=== PATIENT | male | born 1970 | race Caucasian/White ===

== ENCOUNTER 2019-01-14 15:33 | Emergency (ER) | payer BC, SELFPAY ==
[2019-01-14 15:34] VITALS: BP 125/80; PULSE 57; RESP 16; TEMP 36.6; O2SAT 100; BMI 24.3
--- NOTE | 2019-01-14 16:04 | ED.VIS.GEN ---
History of Present Illness Chief Complaint: Flank Pain Detail of Chief Complaint: Left flank pain Informant: Patient Onset: Days - 2 days ago Context: Gradual Onset Timing: Continuous Quality: Aching and throbbing Location: Left flank and left lower ribs Current Severity: Mild Maximum Severity: Moderate Worsened by: Movement, deep breath, palpation Narrative: Patient reports left lateral upper abdominal wall and left lower rib pain that started on Tuesday, 2 days ago. Patient states he was at work at the time. He does not remember a specific injury but does lift quite a bit. Pain is worse with movement. He has not taken anything for pain. He denies urinary symptoms. He has no shortness of breath or cough. He has no nausea or vomiting. Past Medical History - Allergies and Home Meds Allergies/Adverse Reactions: Allergies Penicillins [PCN] Allergy (Verified 01/14/19 15:34) Hives Primary Care Physician: Care Physician,No Primary [Primary Care Provider] - Prior records reviewed: Yes Past Medical History: - - Reviewed Lives: Spouse/ Significant Other Review of Systems General: Denies: Chills, Fever Eyes: Denies: Visual changes - bilaterally ENT: Denies: Bilateral ear pain Cardiovascular: Denies: Chest pain Respiratory: Denies: Dyspnea, Cough Gastrointestinal: Reports: Abdominal pain - Left lateral abdominal wall. Denies: Nausea, Vomiting Genitourinary: Denies: Dysuria, Hematuria Musculoskeletal: Reports: Back pain - Left flank area Skin: Denies: Rash Neurological: Denies: Weakness, Parasthesia Hematologic: Denies: Easy bruising, Easy bleeding Allergy: Denies: Uticaria Physical Exam Vital Signs/Narrative: Vital Signs Temp Pulse Resp BP Pulse Ox 01/14/19 15:34 97.8 F 57 L 16 125/80 H 100 General: Well nourished, Well developed Eyes: EOMI ENT: Moist mucous membranes Cardiovascular: Regular rate, Regular rhythm Respiratory: No distress, CTA bilaterally, Chest tenderness - Left lower lateral rib tenderness. No crepitus. Abdomen: Soft, Normal bowel sounds, Tender - Tenderness along the left upper lateral abdominal wall.. Negative for: Guarding, Rebound tenderness Back: - - Tenderness along the left lumbar paraspinal muscles. Extremities: Nontender Skin: Normal color, No rash Neurological: Alert, Oriented x3 Diagnostic/Tx/Re-eval Impressions Chest X-Ray 01/14/19 16:15 IMPRESSION: Normal x-ray examination of the chest. Electronically Signed: Haja Smyth DO at 16:56 EDT Tel , Service support , 01/14/19 16:15 Chest PA and Lateral [RAD] Stat - Medical Decision Making Patient was given naproxen along with 1 tab of p.o. [place]. On repeat examination patient reports improvement in his symptoms. I believe his pain is all in the chest abdominal wall. Patient be treated with naproxen at home. He is given work restrictions for 2 days. ED Disposition - Plan for ED Patient: Disposition: Home or Assisted Living Instructions: Chest Wall Strain Prescriptions: Naproxen [Naprosyn] 500 mg PO BID PRN #20 tablet Referrals: Kevin Alonso MD [STAFF PHYSICIAN] - As Needed
[2019-01-14] MEDS: HYDROcodone Bitartrate/Apap 5/325 Tablet PO (16:13)
[2019-01-14] MEDS: Naproxen 500 MG Tablet PO (16:13)
--- NOTE | 2019-01-14 16:15 | RAD_ITS ---
STUDY: X-RAY CHEST REASON FOR EXAM: Male, 48 years old. Chest pain TECHNIQUE: PA and lateral views of the chest. COMPARISON: None. FINDINGS: The lungs are clear and expanded. There is no demonstrated pleural abnormality. Normal size heart. Normal mediastinum and eileen. Normal visualized pulmonary arteries. Normal visualized aortic arch and descending thoracic aorta. Normal visualized thoracic spine. Normal visualized ribs, clavicles, and shoulders. There is no demonstrated abnormality of the visualized soft tissue structures of the upper abdomen. RAD/Chest PA and Lateral IMPRESSION: Normal x-ray examination of the chest. Electronically Signed: Haja Smyth DO at 16:56 EDT Tel , Service support ,
== END 2019-01-14 17:42 | disposition home or self-care (01) ==
PROVIDERS: Emergency Provider Emergency Medicine
DX: S29.011A Strain of muscle and tendon of front wall of thorax, initial encounter (principal); X58.XXXA Exposure to other specified factors, initial encounter; Y93.9 Activity, unspecified; Y92.9 Unspecified place or not applicable
CPT/HCPCS: 71046; 99283

== ENCOUNTER → 2019-07-14 07:25 | Outpatient (CLI) | payer BC, SELFPAY ==
[2019-07-14 08:06] LABS: Absolute Lymphocyte Count 1.61 X10^3/uL (0.83-4.51); Absolute Neutrophil Count 2.6 X10^3/uL (2.0-7.7); Basophil# 0.04 X10^3/uL; Basophil% 0.8 % (0-1); Eosinophil# 0.21 X10^3/uL; Eosinophils% 4.3 % (0-5); Hematocrit 45.2 % (40-54); Hemoglobin 14.9 g/dL (13.0-16.5); Lymphocyte # 1.61 X10^3/ul (4.0); Lymphocyte % 32.9 % (19-41); Mean Corpuscular Hgb 28.5 pg (27.0-32.0); Mean Corpuscular Volume 86.6 fL (80-94); Mean Platelet Vol. 9.9 fl (6.2-12.0); Monocyte# 0.44 X10^3/uL; NRBC Flagged by Analyzer 0 % (0-5); Neutrophil # 2.58 X10^3/uL (2.7-7.7); Neutrophil % 52.8 % (47-70); Platelet Count 181 K/mm3 (150-450); RBC Distribution Width CV 12.1 % (11.6-14.6); RBC Distribution Width SD 38.2 fl (35.1-43.9); Red Blood Count 5.22 M/mm3 (4.6-6.2); White Blood Count 4.9 K/mm3 (4.4-11.0)
[2019-07-14 08:29] LABS: ALB/GLOB Ratio 1.3 RATIO (0.9-2.4); AST(SGOT) 23 U/L (15-37); Alanine Aminotransfer ALT/SGPT 31 U/L (16-61); Albumin, Serum 3.9 g/dL (3.2-5.0); Alkaline Phosphatase 63 U/L (45-117); Anion Gap 4 (5-15); BUN 22 mg/dL (7-18); Calcium,Total 8.8 mg/dL (8.5-10.1); Chloride 108 mmol/L (98-107); Cholesterol 132 mg/dL (200); Creatinine, Serum 1.05 mg/dL (0.70-1.30); EST Glomerular Filtration Rate 80 mL/min (>60); Est Glom Filt Rate - Afr Amer 96 mL/min (>60); Globulin 3.1 g/dL (2.2-4.2); Glucose 96 mg/dL (74-106); High Density Lipoprotein 33 mg/dL; Potassium 4.1 mmol/L (3.5-5.1); Sodium Level 140 mmol/L (136-145); Triglycerides 81 mg/dL; Very Low Density Lipoprotein 16 mg/dL (5-40)
== END ==
PROVIDERS: PCP Family Medicine; Referring Provider Family Medicine; Visit Provider Family Medicine
DX: Z00.01 Encounter for general adult medical examination with abnormal findings (principal); F17.220 Nicotine dependence, chewing tobacco, uncomplicated
CPT/HCPCS: 36415; 80053; 80061; 85025

== ENCOUNTER 2021-02-20 16:10 | Emergency (ER) | payer OTHER, SELFPAY ==
[2021-02-20 16:10] VITALS: BP 124/90; PULSE 75; RESP 18; TEMP 36.6; O2SAT 97; BMI 25.9
[2021-02-20 17:14] VITALS: BP 116/85; PULSE 53; RESP 26; TEMP 36.6; O2SAT 99
--- NOTE | 2021-02-20 17:59 | EDS_ITS ---
HPI History of Present Illness Chief Complaint: General Illness Informant: patient Onset/Context/Timing Onset: Days (10) Context: Gradual Onset Timing: Continuous Quality: Aching Location: Generalized Worsened by: Nothing Relieved by: Ibuprofen at times Narrative Narrative: Patient presents with body aches and muscle aches for the past 10 days. Patient states he was diagnosed with COVID-19 10 days ago. Patient states he feels achy all over. Patient states ibuprofen has been helping sometimes. Patient admits to subjective fevers but did not take his temperature. Patient admits to some blurry vision at times. Patient admits to cough but denies any sputum production. Patient states he feels short of breath at times. Patient denies any nausea or vomiting. [facility] Medical History (Updated 02/20/21 @ 20:[address] Kevin Huber DO) COVID Home Medications NK 02/20/21 [History Last Taken Unknown] Allergy/AdvReac Type Severity Reaction Status Date / Time Penicillins [PCN] Allergy Hives Verified 02/20/21 16:10 Surgical History (Updated 02/20/21 @ 18:[address] Kevin Huber DO) History of surgery on wrist Hx of appendectomy Hx of knee surgery Social History Smoking Status: Former smoker ROS ROS ED Constitutional Constitutional ED: Reports fever(s) and subjective; Denies chills Eyes Eyes: Reports blurry vision; Denies diplopia ENT ENT ED: Denies rhinorrhea or sore throat Cardiovascular Cardiovascular: Denies chest pain or palpitations Respiratory/Chest Respiratory/Chest: Reports cough and dyspnea Gastrointestinal Gastrointestinal: Denies nausea or vomiting Genitourinary Genitourinary ED: Denies dysuria or hematuria Musculoskeletal Musculoskeletal: Reports arthralgias and myalgias Integumentary Denies abscess or rash Neurologic Neurologic: Denies headache(s) or weakness Allergic/Immunologic Allergic/Immunologic ED: Denies mouth swelling or urticaria EXAM Physical Exam Const Vital Signs: 02/20/21 16:10 02/20/21 17:14 02/20/21 18:00 Temperature 98 F 97.9 F 97.9 F Temperature Source Temporal Temporal Temporal Pulse Rate 75 53 L 50 L Respiratory Rate 18 26 H 20 H Respiratory Pattern Normal Blood Pressure 124/90 H 116/85 H 107/75 Blood Pressure Mean 101 95 85 Pulse Ox 97 99 98 Oxygen Delivery Method Room Air Room Air Room Air 02/20/21 19:00 02/20/21 20:08 Temperature 98.8 F 98.9 F Temperature Source Temporal Temporal Pulse Rate 55 L 49 L Respiratory Rate 22 H 19 H Respiratory Pattern Blood Pressure 111/68 100/68 Blood Pressure Mean 82 78 Pulse Ox 99 98 Oxygen Delivery Method Room Air Room Air Positive well nourished and well developed General Appearance ED: well developed HEENT Reports moist mucous membranes Neck supple and no JVD Resp normal respiratory effort and clear to auscultation bilaterally Cardio regular rate, regular rhythm and no murmurs GI normal to inspection, nondistended, normoactive bowel sounds and non-tender Palpation: soft Extremity normal to inspection General Extremety ED: Negative for edema or tenderness General Extremity: Negative for edema Neuro oriented x3, CN's II-XII intact bilaterally and no sensory deficits noted Sensorium / Orientation: alert Motor Exam: strength 5/5 throughout Psych mental status grossly normal Skin no rashes or lesions noted MDM MDM MDM Narrative Medical decision making narrative: Patient was given 500 cc bolus of normal saline. Patient was given 4 puffs of an albuterol inhaler. Patient was given Tylenol. Portable 1 view chest x-ray was obtained. On my interpretation, lung lara bilateral infiltrates, left greater than right, consistent with COVID-19. There is normal cardiac silhouette. Bony thorax is normal. Radiologist also interpreted the x-ray and agrees. CBC and comprehensive metabolic profile were normal. Lactate was normal. Patient is feeling somewhat better on reevaluation. Patient was instructed to continue with Tylenol or ibuprofen as needed for any aches or fevers. Patient was instructed to follow-up with his primary care physician in 5 to 7 days. Patient understood and was agreeable with the plan. All questions were answered. Lab Data Attestation: I reviewed the patient's lab results. Labs: Laboratory Results - last 24 hr 02/20/21 02/20/21 02/20/21 18:15 18:15 18:15 WBC 5.1 RBC 5.65 Hgb 16.0 Hct 48.5 MCV 85.8 MCH 28.3 MCHC 33.0 RDW Std Deviation 39.1 RDW Coeff of Kiran 12.4 Plt Count 155 MPV 10.2 Immature Gran % (Auto) 0.600 Neut % (Auto) 69.2 Lymph % (Auto) 19.1 [place] % (Auto) 9.1 Eos % (Auto) 1.6 Baso % (Auto) 0.4 Absolute Neuts (auto) 3.6 Absolute Lymphs (auto) 0.98 Nucleated RBC % 0 Sodium 138 Potassium 4.3 Chloride 105 Carbon Dioxide 30.0 Anion Gap 3 L BUN 20 H Creatinine 1.10 Estim Creat Clear Calc 84.62 Est GFR (MDRD) Af Amer 91 Est GFR (MDRD) Non-Af 75 BUN/Creatinine Ratio 18.2 Glucose 100 Lactic Acid 1.0 Calcium 8.9 Total Bilirubin 1.10 H AST 40 H ALT 47 Alkaline Phosphatase 71 Total Protein 7.3 Albumin 3.6 Globulin 3.7 Albumin/Globulin Ratio 1.0 Radiography Chest X-Ray - ED: 1 View, Read by ED Physician, Read by Radiologist and Normal Diagnostic Testing: Radiology Impression Chest X-Ray 02/20/21 18:25 IMPRESSION: Acute viral pneumonia, probably Covid, left greater than right. Electronically Signed: Aristides Jay MD at 19:34 EDT Tel , Service support , Discharge Plan Triage Chief Complaint: General Illness ED Provider: Kevin Huber Dx/Rx/DC Orders Clinical Impression: COVID-19 Instructions: Coronavirus Disease 2019 (COVID-19): Caring for Yourself or Others Prescriptions: No Action NK RF: 0 Primary Care Provider: Miladys Sevilla Referrals: Miladys Sevilla MD [Primary Care Provider] - 5-7 Days Disposition Disposition: Home, Self Care
[2021-02-20 18:00] VITALS: BP 107/75; PULSE 50; RESP 20; TEMP 36.6; O2SAT 98
--- NOTE | 2021-02-20 18:25 | RAD_ITS ---
STUDY: X-RAY CHEST REASON FOR EXAM: Male, 50 years old. cough TECHNIQUE: Frontal portable view of the chest COMPARISON: 14 January 2019 FINDINGS: There are ill-defined left greater than right lower lung interstitial appearing opacities. There is no pneumothorax, pulmonary edema, cardiomegaly or pleural effusions. RAD/Chest 1 View (Portable) IMPRESSION: Acute viral pneumonia, probably Covid, left greater than right. Electronically Signed: Aristides Jay MD at 19:34 EDT Tel , Service support ,
[2021-02-20] MEDS: Acetaminophen 500 MG Tablet 1000 MG PO (18:28)
[2021-02-20 18:44] LABS: Absolute Lymphocyte Count 0.98 X10^3/uL (0.83-4.51); Absolute Neutrophil Count 3.6 X10^3/uL (2.0-7.7); Basophil# 0.02 X10^3/uL; Basophil% 0.4 % (0-1); Eosinophil# 0.08 X10^3/uL; Eosinophils% 1.6 % (0-5); Hematocrit 48.5 % (40-54); Lymphocyte # 0.98 X10^3/ul (0.83-4.51); Lymphocyte % 19.1 % (19-41); Mean Corpuscular Hgb 28.3 pg (27.0-32.0); Mean Corpuscular Volume 85.8 fL (80-94); Mean Platelet Vol. 10.2 fl (6.2-12.0); Monocyte# 0.47 X10^3/uL; Monocyte% 9.1 % (0-10); NRBC Flagged by Analyzer 0 % (0-5); Neutrophil # 3.56 X10^3/uL (2.7-7.7); Neutrophil % 69.2 % (47-70); Platelet Count 155 K/mm3 (150-450); RBC Distribution Width CV 12.4 % (11.6-14.6); RBC Distribution Width SD 39.1 fl (35.1-43.9); Red Blood Count 5.65 M/mm3 (4.6-6.2); White Blood Count 5.1 K/mm3 (4.4-11.0)
[2021-02-20 18:55] LABS: AST(SGOT) 40 U/L (15-37); Alanine Aminotransfer ALT/SGPT 47 U/L (16-61); Albumin, Serum 3.6 g/dL (3.2-5.0); Alkaline Phosphatase 71 U/L (45-117); Anion Gap 3 (5-15); BUN 20 mg/dL (7-18); BUN/Creat Ratio 18.2 RATIO (10-20); Calcium,Total 8.9 mg/dL (8.5-10.1); Chloride 105 mmol/L (98-107); EST Glomerular Filtration Rate 75 mL/min (>60); Est Glom Filt Rate - Afr Amer 91 mL/min (>60); Estimated Creatinine Clearance 84.62 ml/min; Globulin 3.7 g/dL (2.2-4.2); Glucose 100 mg/dL (74-106); Potassium 4.3 mmol/L (3.5-5.1); Protein, Total 7.3 g/dL (6.4-8.2); Sodium Level 138 mmol/L (136-145)
[2021-02-20 19:00] VITALS: BP 111/68; PULSE 55; RESP 22; TEMP 37.1; O2SAT 99
[2021-02-20 20:08] VITALS: BP 100/68; PULSE 49; RESP 19; TEMP 37.2; O2SAT 98
[2021-02-20 21:09] VITALS: BP 112/78; PULSE 62; RESP 18; O2SAT 97
== END 2021-02-20 21:10 | disposition home or self-care (01) ==
PROVIDERS: Emergency Provider Emergency Medicine; PCP Family Medicine
DX: U07.1 COVID-19 (principal); Z87.891 Personal history of nicotine dependence
CPT/HCPCS: 71045; 80053; 83605; 85025; 96360; 99284; J7030; A4216

== ENCOUNTER → 2022-07-06 | Outpatient (CLI) | payer OTHER, SELFPAY ==
[2022-07-06 15:11] LABS: Absolute Neutrophil Count 2.7 X10^3/uL (2.0-7.7); Basophil# 0.05 X10^3/uL; Basophil% 0.9 % (0-1); Eosinophil# 0.27 X10^3/uL; Eosinophils% 5.1 % (0-5); Hematocrit 48.2 % (40-54); Lymphocyte % 34.2 % (19-41); Mean Corp Hgb Conc 33.2 g/dL (32-36); Mean Corpuscular Hgb 28.6 pg (27.0-32.0); Mean Corpuscular Volume 86.2 fL (80-94); Mean Platelet Vol. 9.7 fl (6.2-12.0); Monocyte# 0.45 X10^3/uL; Monocyte% 8.5 % (0-10); NRBC Flagged by Analyzer 0 % (0-5); Neutrophil # 2.67 X10^3/uL (2.7-7.7); Neutrophil % 50.7 % (47-70); Platelet Count 175 K/mm3 (150-450); RBC Distribution Width CV 12.7 % (11.6-14.6); RBC Distribution Width SD 39.8 fl (35.1-43.9); Red Blood Count 5.59 M/mm3 (4.6-6.2); White Blood Count 5.3 K/mm3 (4.4-11.0)
[2022-07-06 15:28] LABS: ALB/GLOB Ratio 1.2 RATIO (0.9-2.4); AST(SGOT) 27 U/L (15-37); Alanine Aminotransfer ALT/SGPT 48 U/L (16-61); Albumin, Serum 4.1 g/dL (3.2-5.0); Alkaline Phosphatase 69 U/L (45-117); Anion Gap 2 (5-15); BUN 22 mg/dL (7-18); BUN/Creat Ratio 21.6 RATIO (10-20); Calcium,Total 9.5 mg/dL (8.5-10.1); Chloride 109 mmol/L (98-107); Cholesterol 145 mg/dL (200); Creatinine, Serum 1.02 mg/dL (0.70-1.30); EST Glomerular Filtration Rate 81 mL/min (>60); Est Glom Filt Rate - Afr Amer 98 mL/min (>60); Globulin 3.3 g/dL (2.2-4.2); Glucose 109 mg/dL (74-106); High Density Lipoprotein 29 mg/dL; Potassium 4.5 mmol/L (3.5-5.1); Protein, Total 7.4 g/dL (6.4-8.2); Sodium Level 140 mmol/L (136-145); Triglycerides 94 mg/dL; Very Low Density Lipoprotein 19 mg/dL (5-40)
[2022-07-08 08:28] LABS: Hemoglobin A1c 5.4 % (3.8-5.6)
== END | disposition home or self-care (01) ==
PROVIDERS: PCP Family Medicine; Visit Provider Family Medicine
DX: Z00.00 Encounter for general adult medical examination without abnormal findings (principal); R59.1 Generalized enlarged lymph nodes; F17.220 Nicotine dependence, chewing tobacco, uncomplicated
CPT/HCPCS: 36415; 80053; 80061; 83036; 85025

== ENCOUNTER → 2023-08-05 | Outpatient (CLI) | payer OTHER, SELFPAY ==
[2023-08-05 12:17] LABS: Cholesterol 158 mg/dL (200); High Density Lipoprotein 30 mg/dL; Triglycerides 127 mg/dL; Very Low Density Lipoprotein 25 mg/dL (5-40)
== END | disposition home or self-care (01) ==
PROVIDERS: PCP Family Medicine; Referring Provider Family Medicine; Visit Provider Family Medicine
DX: Z00.00 Encounter for general adult medical examination without abnormal findings (principal)
CPT/HCPCS: 36415; 80061

== ENCOUNTER 2023-08-17 20:04 | Emergency (ER) | payer OTHER, SELFPAY ==
[2023-08-17 20:05] VITALS: BP 126/80; PULSE 68; RESP 16; TEMP 35.8; O2SAT 97; BMI 27.8
[2023-08-17 21:29] VITALS: BP 115/80; PULSE 50; RESP 18; O2SAT 99
--- NOTE | 2023-08-17 22:48 | EX.ED.DYSGE1 ---
HPI History of Present Illness Chief Complaint: Laceration Informant: patient Narrative Narrative: Patient is a 52-year-old male with no significant past medical history. He states that he was at work this evening when a hair net got stuck in the wheel of a cart at the assisted. He reports he was cutting the net away when his hand slipped and he cut his right palm/wrist. He states he is left-hand dominant. He is unsure of his tetanus status. He denies any numbness tingling or weakness. He states he was concerned about secondary infection secondary to the injury occurring with a dirty pocket knife and is also concerned he may need the area closed and secondary to this comes in for evaluation. [facility] Medical History (Updated 08/18/23 @ 01:[address] Victoriano Jean DO) COVID Home Medications sulfamethoxazole 800 mg-trimethoprim 160 mg tablet (Bactrim DS) 1 tab PO BID 7 days #14 tabs 08/17/23 [Rx Last Taken Unknown] Allergy/AdvReac Type Severity Reaction Status Date / Time Penicillins [PCN] Allergy Hives Verified 08/17/23 20:05 Surgical History History of surgery on wrist Hx of appendectomy Hx of knee surgery Social History Smoking Status: Former smoker ROS ROS ED Constitutional Constitutional ED: Denies chills or fever(s) ENT ENT ED: Denies sore throat Cardiovascular Cardiovascular: Denies chest pain Respiratory/Chest Respiratory/Chest: Denies cough or dyspnea Gastrointestinal Gastrointestinal: Denies abdominal pain, diarrhea, nausea or vomiting Genitourinary Genitourinary ED: Denies dysuria Musculoskeletal Musculoskeletal: Reports other Details: Positive right hand pain Integumentary Reports other Details: Positive right hand laceration Neurologic Neurologic: Denies headache(s), paresthesias or weakness Hematologic/Lymphatic Hematologic/Lymphatic: Denies easy bleeding or easy bruising EXAM Physical Exam Const Vital Signs: 08/17/23 20:05 08/17/23 21:29 08/17/23 23:47 Temperature 96.5 F L 98 F Temperature Source Temporal Pulse Rate 68 50 L 80 Respiratory Rate 16 18 18 Blood Pressure 126/80 H 115/80 117/75 Blood Pressure Mean 95 91 89 Pulse Ox 97 99 100 Oxygen Delivery Method Room Air Room Air Positive well nourished and well developed General Appearance ED: well developed HEENT HEENT Narrative: Normocephalic atraumatic Eyes PERRL and EOMs intact bilaterally General Eye ED: Negative for scleral icterus Neck supple Resp normal respiratory effort and clear to auscultation bilaterally Cardio regular rate and regular rhythm Extremity Extremity Narrative: Right upper extremity is neurovascularly intact; AIN/PIN are intact and normal. Capillary refills less than 3 seconds. Along the volar aspect of the right hand near the mid section of the proximal palm there is a 2 cm dermal layer linear laceration with minimal ooze of blood and no foreign body. Remainder of exam is normal Neuro oriented x3, CN's II-XII intact bilaterally and no sensory deficits noted Sensorium / Orientation: alert Motor Exam: strength 5/5 throughout Psych mental status grossly normal Skin Skin Narrative: Laceration to the palm of the right hand as documented above MDM MDM MDM Narrative Medical decision making narrative: Patient presented to the ER with stable vitals and reported a simple laceration to his right palm that occurred roughly 4 hours ago. The patient is neurovascularly intact the wound is only dermal layer deep and he has no signs of arterial injury or tendon injury or bony injury so there is no need for imaging studies or emergent consultation with vascular or orthopedic. As the patient was unsure of his tetanus status was updated. As the wound is moderately contaminated the patient will be placed on prophylactic antibiotics. Otherwise the patient is neurovascular intact without signs of bony injury or ligamentous or tendon injury or vascular injury so the wound was closed as document below and is otherwise safe for discharge Patient had the wound cleaned with chlorhexidine. It was copiously irrigated with normal saline. Dermabond was then applied to the wound to bring the edges together well with good approximation. Patient tolerated procedure well without complication History & Record Review Discussion w/independent historian: Patient Discharge Plan Triage Chief Complaint: Laceration ED Provider: Victoriano Jean Dx/Rx/DC Orders Clinical Impression: Laceration of right hand, Tetanus toxoid vaccination administered at current visit Instructions: ED Laceration, Extremity: Skin Glue Prescriptions: New sulfamethoxazole-trimethoprim [Bactrim DS] 800-160 mg tablet 1 tab PO BID 7 Days Qty: 14 0RF Primary Care Provider: Miladys Sevilla Referrals: Miladys Sevilla MD [Primary Care Provider] - Activity Restrictions/Additional Instructions: You can wash your hand with soap and water and shower but please do not soak the hand in water such as dishwater or a bath or hot tub as this could cause the Dermabond to fall off prematurely. The Dermabond will fall off on its own at approximately 10 to 14 days but if you have any further concerns or worsening symptoms please return to the ER for repeat evaluation Disposition Disposition: Home, Self Care Discharge Date/Time: 08/17/23 23:48
--- OUTSIDE RECORDS SUMMARY | 2023-08-17 22:58 | XMS RPT_ITS | CCD ---
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 Role Phone JAMISON CORDOVA (ROMERO) Unavailable Unavailable Allergies Allergy Classification Reported Allergen(s) Allergy Type Date of Onset Reaction(s) Facility (1 source) Penicillins; Translations: [PENICILLINS] Propensity to adverse reactions to drug (disorder) 5 AOF [facility] Repository Problems Problem Classification Problem Date Documented Da te Episodic/Chronic Other injuries and conditions due to external causes (1 source) Unspecified injury of left shoulder and upper arm, initial encounter; Translations: [Unspecified injury of left shoulder and upper arm, initial encounter] Onset: 06-17-2017 Episodic Results Test Name Value Interpretation Reference Range Facil ity Encounters Encounter Date Encounter Type Care Provider Facility Start: 06-17-2017 End: 06-17-2017 Trevon CORDOVA ([place]) [facility] Summary Purpose Family History No Family History Records Found Advance Directives No Advanced Directives Records Found Additional Source Comments (unrecognized sect ion and content) No Status Records Found INFORMATION SOURCE (unrecogn ized section and content) FOR RECORDS PERTAINING TO PATIENTS WHO ARE OR HAVE BEEN ENROLLED IN A CHEMICAL DEPENDENCY/SUBSTANCEABUSE PROGRAM, SOME INFORMATION MAY BE OMITTED. This clinical summary was aggregated from multiple sources. Caution should be exercised in using it in the provision of clinical care. This summary normalizes information from multiple sources, and as a consequence, information in this document may materially change the coding, format and clinical context of patient data. In addition, data may be omitted in some cases. CLINICAL DECISIONS SHOULD BE BASED ON THE PRIMARY CLINICAL RECORDS. [facility] [employer] [facility]. provides no warranty or guarantee of the accuracy or completeness of information in this document.
[2023-08-17] MEDS: Smz/Tmp Ds Tablet 1 TABLET PO (23:07)
[2023-08-17] MEDS: Diphth,Pertuss(Acell),Tet Vac 0.5 ML Vial IM (23:07)
[2023-08-17 23:47] VITALS: BP 117/75; PULSE 80; RESP 18; TEMP 36.6; O2SAT 100
== END 2023-08-17 23:48 | disposition home or self-care (01) ==
LOC: ED 22:55
PROVIDERS: Emergency Provider Emergency Medicine; PCP Family Medicine; Visit Provider Emergency Medicine
DX: S61.411A Laceration without foreign body of right hand, initial encounter (principal); Z87.891 Personal history of nicotine dependence; Z23 Encounter for immunization; W26.0XXA Contact with knife, initial encounter; Y93.89 Activity, other specified; Y99.0 Civilian activity done for income or pay; Y92.129 Unspecified place in nursing home as the place of occurrence of the external cause; Z90.49 Acquired absence of other specified parts of digestive tract
CPT/HCPCS: 12001; 90471; 90715; 99282

== ENCOUNTER → 2024-08-23 | Outpatient (CLI) | payer OTHER, SELFPAY ==
[2024-08-23 17:36] LABS: Absolute Lymphocyte Count 2.13 X10^3/uL (0.83-4.51); Absolute Neutrophil Count 4.2 X10^3/uL (2.0-7.7); Basophil# 0.05 X10^3/uL; Basophil% 0.7 % (0-1); Eosinophil# 0.21 X10^3/uL; Eosinophils% 2.9 % (0-5); Hemoglobin 15.7 g/dL (13.0-16.5); Lymphocyte # 2.13 X10^3/ul (0.83-4.51); Lymphocyte % 29.1 % (19-41); Mean Corp Hgb Conc 32.7 g/dL (32-36); Mean Corpuscular Hgb 28.8 pg (27.0-32.0); Mean Corpuscular Volume 88.1 fL (80-94); Mean Platelet Vol. 9.7 fl (6.2-12.0); Monocyte# 0.67 X10^3/uL; Monocyte% 9.2 % (0-10); NRBC Flagged by Analyzer 0 % (0-5); Neutrophil # 4.23 X10^3/uL (2.7-7.7); Neutrophil % 57.7 % (47-70); Platelet Count 211 K/mm3 (150-450); RBC Distribution Width CV 12.7 % (11.6-14.6); RBC Distribution Width SD 40.7 fl (35.1-43.9); Red Blood Count 5.45 M/mm3 (4.6-6.2); White Blood Count 7.3 K/mm3 (4.4-11.0)
[2024-08-23 18:46] LABS: Hemoglobin A1c 5.5 % (<=5.6)
[2024-08-23 19:19] LABS: ALB/GLOB Ratio 1.6 RATIO (0.9-2.4); AST(SGOT) 47 U/L (<=37); Alanine Aminotransfer ALT/SGPT 54 U/L (<=46); Albumin, Serum 4.4 g/dL (3.5-5.0); Alkaline Phosphatase 83 U/L (40-129); Anion Gap 9 (5-15); BUN 25 mg/dL (4-19); BUN/Creat Ratio 22.4 RATIO (10-20); Calcium 10.4 mg/dL (7.6-11.0); Carbon Dioxide 24.4 mmol/L (22.0-29.0); Chloride 106 mmol/L (96-108); EST Glomerular Filtration Rate 80 (>60); Globulin 2.8 g/dL (2.2-4.2); Glucose 86 mg/dL (70-99); Potassium 4.5 mmol/L (3.3-5.1); Protein, Total 7.2 g/dL (5.9-8.4); Sodium Level 140 mmol/L (133-145); Total Bilirubin 0.71 mg/dL (0.00-1.30)
== END | disposition home or self-care (01) ==
LOC: MTLAB 15:39
PROVIDERS: PCP Family Medicine; Referring Provider Family Medicine; Visit Provider Family Medicine
DX: R53.83 Other fatigue (principal)
CPT/HCPCS: 36415; 80053; 83036; 84443; 85025

== ENCOUNTER 2024-10-06 12:37 | Emergency (ER) | payer OTHER, SELFPAY ==
[2024-10-06 12:38] VITALS: BP 151/91; PULSE 54; RESP 19; TEMP 36.7; O2SAT 99; BMI 28.4
--- NOTE | 2024-10-06 13:13 | EDS_ITS ---
HPI History of Present Illness Chief Complaint: Back Informant: patient Onset/Context/Timing Onset: Weeks Context: Gradual Onset Timing: Intermittent Quality: Sharp Current Severity: Moderate Maximum Severity: Moderate Worsened by: improves with Movement and Bending Relieved by: Nothing Associated Symptoms Associated Symptoms: Negative for Numbness, Tingling, Radiation to Right Leg, Radiation to Left Leg, Fever, Abdominal Pain, Dysuria, Unable to Ambulate, Unable to Transfer, Urinary Retention, Urinary Incontinence, Constipation or Fecal Incontinence Narrative Narrative: 54-year-old male history of scoliosis no prior back surgery. Complaining of right posterior rib cage back pain for 2 weeks. Intermittent. Worse with movement. No fall injury or trauma. No fever. No cough or shortness of breath. He has not really tried any thing for the pain. He does not like his scoliosis pain which is usually his lower back in the midline. Denies any history of kidney stones. No dysuria or hematuria. No urgency or frequency. No abdominal pain. No chest pain. Prior similar symptoms: No Recent Illness/Hospitalization: No PFSH PFSH Medical History Impingement of left shoulder Left shoulder pain COVID Home Medications ?Medication ?Instructions ?Recorded ?Last Taken ?Type sulfamethoxazole 800 1 tab PO BID 7 days #14 tabs 08/17/23 Unknown Rx mg-trimethoprim 160 mg tablet (Bactrim DS) meloxicam 15 mg tablet mg PO DAILY 08/30/24 Unknown History metaxalone 800 mg tablet 800 mg PO TID 7 days #21 tab s 10/06/24 Unknown Rx Allergy/AdvReac Type Severity Reaction Status Date / Time Penicillins (PCN) Allergy Hives Verified 10/06/24 12:38 Family History no significant family his Surgical History Hx of knee surgery History of surgery on wrist Hx of appendectomy Social History Smoking Status: Former smoker ROS ROS ED ROS Narrative Denies recent illness. Constitutional Constitutional ED: Denies chills or fever(s) Eyes Eyes: Denies blurry vision ENT ENT ED: Denies ear pain Cardiovascular Cardiovascular: Denies chest pain, palpitations or racing heartbeat Respiratory/Chest Respiratory/Chest: Denies dyspnea or dyspnea on exertion Gastrointestinal Gastrointestinal: Denies abdominal pain, constipation, diarrhea, melena, nausea or vomiting Genitourinary Genitourinary ED: Denies dysuria, hematuria or urinary frequency Musculoskeletal Musculoskeletal: Reports back pain; Denies arthralgias, myalgias or neck pain Integumentary Denies abscess or Abrasions Neurologic Neurologic: Denies headache(s) Psychiatric Psychiatric: Denies anxiety or depression Endocrine Endocrinology: Denies cold intolerance Hematologic/Lymphatic Hematologic/Lymphatic: Denies easy bleeding or easy bruising Allergic/Immunologic Allergic/Immunologic ED: Denies mouth swelling, tongue swelling or urticaria EXAM Physical Exam Narrative Exam Narrative: 54-year-old male vital signs are stable afebrile. Does not look septic or toxic. No acute distress. Pulse ox 99% on room air no signs of hypoxia. at bedside. H EENT exam pupils round reactive light. Extra motions are intact. Neck nontender. No lymphadenopathy. Lungs clear to auscultation bilaterally. Heart regular rhythm rate about 55-60 no murmur. Chest wall and anterior ribs nontender. Abdomen is soft, nontender, nondistended normal bowel sounds without peritoneal signs. Moving all 4 extremities. 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 Dorsi plantarflexion intact. Negative straight leg raise. No cauda equina. No saddle anesthesia. Normal range of motion both upper and lower extremities. Back the cervical, thoracic and lumbar spine are nontender. His right posterior rib cage on the lower lateral area is tender. There is no ecchymosis or bruising. No subcu air or crepitus. No redness or warmth. No signs of trauma. No other areas of his back or spine are tender. Neurologically is awake and alert no focal motor deficits. Const Vital Signs: 10/06/24 12:38 Temperature 98.1 F Temperature Source Oral Pulse Rate 54 L Respiratory Rate 19 H Blood Pressure 151/91 H Blood Pressure Mean 111 Pulse Ox 99 Oxygen Delivery Method Room Air Positive well nourished and well developed; Negative for obese, cachectic, contractures or unkempt General Appearance ED: well developed and NAD; Negative for unkempt, cachectic, contractures or pallor Nutritional Appearance: Negative for cachectic or obese HEENT Reports moist mucous membranes Negative for trauma or tenderness Eyes PERRL and EOMs intact bilaterally Neck no lymphadenopathy, supple and no JVD Resp normal respiratory effort and clear to auscultation bilaterally Cardio regular rhythm, S1 normal heart sound, S2 normal heart sound and no murmurs; Negative for regular rate Cardio Narrative: Rate 55-60. No murmur. Rate: bradycardia GI normal to inspection, nondistended, normoactive bowel sounds, soft to palpation, non-tender, non-distended and no masses Inspection: Negative for abdominal distention Palpation: Negative for tender, guarding, mass, pulsatile mass or rebound tenderness present Back/Spine no thoracic nor lumbar tenderness; Negative for normal to inspection Back/Spine Narrative: No spine tenderness. Tender over the right posterior ribs. No signs of trauma. No bruising. No crepitance or subcu air. No gross bony deformity. No redness or warmth. General Back: Negative for CVA tenderness Cervical Spine: Negative for cervical spine tenderness Thoracic Spine / Upper Back: Negative for paraspinal muscle tenderness Lumbar Spine / Lower Back: Negative for ROM limited Extremity normal to inspection and no clubbing, cyanosis or edema General Extremety ED: Negative for edema or tenderness General Extremity: Negative for edema Neuro oriented x3 and no sensory deficits noted Sensorium / Orientation: alert; Negative for confused, lethargic or stuporous Motor Exam: strength 5/5 throughout Psych mental status grossly normal Appearance: Negative for unkempt Attitude: No agitated Mood & Affect: Negative for depressed, sad or tearful Skin no rashes or lesions noted and no wounds General Skin Exam: Negative for jaundice or pallor Lesions: No lesion noted Rashes: No rashes noted Trauma: Negative for abrasion or puncture Wounds: Negative for wounds noted Image ED - Body Diagram Man: 2 1. Tender right posterior ribs. No crepitance. No subcu air. No redness or warmth. No bruising. MDM MDM MDM Narrative Medical decision making narrative: 58-year-old male right posterior rib cage pain. I do not think this is a spine or scoliosis. It could be a pulled muscle. Could be muscle spasm. Could be broken ribs but there is no history of trauma. X-ray of his chest and ribs will be obtained. He will be given a [place] for pain. is going to drive home. Patient doing well at 1:40 PM. We discussed his chest x-ray which was normal. He is comfortable being discharged home. Clinically and because of the muscle spasm and strain. I be placed on Skelaxin 800 3 times daily for a week. Motrin and Tylenol. Hot shower, warm bath massage. Follow-up as needed. History & Record Review Discussion w/independent historian: Patient and Family Additional record(s) reviewed:: Prior inpatient record, Prior outpatient record, Prior ED visit and Prior labs Radiography Chest X-Ray - ED: 2 View, Read by ED Physician, Normal, Heart, Lungs, Mediastinum, Bony Structures, No Acute Disease and Chronic Changes Diagnostic Testing: Chest x-ray, 2 views, AP and lateral, interpreted by myself shows no acute abnormality. Normal cardiac silhouette. Normal mediastinum. Normal lung lara. Chronic changes. No rib fractures. No pneumothorax. No effusion or pneumonia. Discharge Plan Triage Chief Complaint: Back ED Provider: Yehuda Leo Dx/Rx/DC Orders Clinical Impression: Muscle strain, Back spasm, History of scoliosis Instructions: ED Muscle Spasm Prescriptions: New metaxalone 800 mg tablet 800 mg PO TID 7 Days Qty: 21 0RF No Action meloxicam 15 mg tablet PO DAILY sulfamethoxazole-trimethoprim [Bactrim DS] 800-160 mg tablet 1 tab PO BID 7 Days Qty: 14 0RF Primary Care Provider: Miladys Sevilla Referrals: Miladys Sevilla MD [Primary Care Provider] - 1 Week if not improving Activity Restrictions/Additional Instructions: Most likely strained a muscle in your back negative and back spasms. Your chest x-ray was normal. No broken ribs. Hot shower, warm bath, massage, hot tub. Motrin 600 mg 3 times a day for pain and inflammation. Tylenol in between. The muscle relaxant Skelaxin 1 pill 3 times a day for a week. This should progressively start feeling better. It will take several days for the muscle relaxant to kick in. Follow-up with your doctor if not improving or return. Print Language: Tajik Disposition Disposition: Home, Self Care
[2024-10-06] MEDS: HYDROcodone Bitartrate/Apap 5/325 Tablet PO (13:19)
--- NOTE | 2024-10-06 13:22 | RAD_ITS ---
PROCEDURE: CHEST PA AND LATERAL 10/06/2024 REASON FOR EXAM: R-POSTERIOR RIB CAGE PAIN. NO TRAUMA. TECHNIQUE: Frontal and lateral views of the chest. COMPARISON: None. FINDINGS: Hardware: None. Heart: The heart size is normal. Mediastinum: The mediastinal contour is unremarkable. Lungs: No focal consolidation, pleural effusion or pneumothorax. Bones: Degenerative changes are identified within the thoracic spine. RAD/Chest PA and Lateral IMPRESSION: NEGATIVE CHEST Reading Location: [id number]
[2024-10-06 14:12] VITALS: BP 124/87; PULSE 46; RESP 16; TEMP 36.8; O2SAT 98
[2024-10-06] MEDS: Metaxalone 800 MG Tablet PO (14:12)
== END 2024-10-06 14:13 | disposition home or self-care (01) ==
PROVIDERS: Emergency Provider Emergency Medicine; PCP Family Medicine; Visit Provider Emergency Medicine
DX: S39.012A Strain of muscle, fascia and tendon of lower back, initial encounter (principal); Z87.891 Personal history of nicotine dependence; M62.830 Muscle spasm of back; M41.9 Scoliosis, unspecified; Z90.49 Acquired absence of other specified parts of digestive tract
CPT/HCPCS: 71046; 99283

== ENCOUNTER → 2025-02-06 | Outpatient (CLI) | payer OTHER, SELFPAY ==
--- NOTE | 2025-02-06 13:33 | RAD_ITS ---
PROCEDURE: L/S SPINE MIN 4 VIEWS 02/06/2025 REASON FOR EXAM: LEFT SIDED RADICULAR PAIN TECHNIQUE: L/S SPINE MIN 4 VIEWS COMPARISON: None FINDINGS: Curvature: Dextroscoliosis. Other findings: Multilevel disc space narrowing worse at the L4-L5 and L5-S1 levels. Facet joint osteoarthritis. Other: No evidence of spondylolysis. RAD/L/S Spine Min 4 Views IMPRESSION: Degenerative changes. Reading Location: [facility]
== END | disposition home or self-care (01) ==
LOC: MTRAD 13:31
PROVIDERS: PCP Family Medicine; Referring Provider Family Medicine; Visit Provider Family Medicine
DX: M54.16 Radiculopathy, lumbar region (principal)
CPT/HCPCS: 72110

== ENCOUNTER → 2025-04-10 | Outpatient (CLI) | payer OTHER, SELFPAY ==
--- NOTE | 2025-04-10 16:09 | MRI_ITS ---
PROCEDURE: SPINE LUMBAR (ROUTINE) 04/10/2025 REASON FOR EXAM: LEFT LUMBAR RADICULOPATHY TECHNIQUE: Procedure Code: [id number] Modality: MR Procedure: SPINE LUMBAR (ROUTINE) COMPARISON: February 06, 2025 FINDINGS: There is grade 1 retrolisthesis at L2-3, 0.3 cm. There is grade 1 retrolisthesis at L3-4, 0.4 cm. There is grade 1 retrolisthesis at L4-5, 0.4 cm. There is Modic fibrotic type endplate change at L5-S1. The vertebral body height is maintained. Vertebral body marrow signal is otherwise normal. Intervertebral disc signal shows desiccation. The facets are aligned. The L1-L2 level: There is no significant disk protrusion. There is no lateral recess stenosis or foraminal stenosis. There is no critical central canal stenosis. The L2-L3 level: There is mild central disk protrusion with increased signal in the margin of the disc consistent with a fissure. There is no lateral recess stenosis or foraminal stenosis. There is no critical central canal stenosis. The L3-L4 level: There is moderate central, moderate right and mild left paracentral disc protrusion. There is moderate right mild left lateral recess effacement. There is mild bilateral foraminal narrowing secondary to disc protrusion and facet hypertrophy. There is mild central canal stenosis, partly secondary to ligamentous hypertrophy. The L4-L5 level: There is mild central and moderate right eccentric disk protrusion. There is mild right lateral recess stenosis. There is mild right foraminal stenosis secondary to disc protrusion. There is no critical central canal stenosis. The L5-S1 level: There is mild right paracentral disk and osteophyte protrusion. There is no lateral recess stenosis. There is mild right foraminal stenosis secondary to disc protrusion and bony hypertrophy. There is no critical central canal stenosis. The visualized conus shows normal signal characteristics. Adjacent soft tissues are unremarkable. MRI/Spine Lumbar (Routine) IMPRESSION: There is grade 1 retrolisthesis at L2-3, 0.3 cm. There is grade 1 retrolisthesi s at L3-4, 0.4 cm. There is grade 1 retrolisthesis at L4-5, 0.4 cm. There is mild central canal stenosis at L3-4, with lateral recess and foraminal narrowing. Reading Location: [facility]
== END | disposition home or self-care (01) ==
LOC: MRI 16:08
PROVIDERS: PCP Family Medicine; Referring Provider Family Medicine; Visit Provider Family Medicine
DX: M54.16 Radiculopathy, lumbar region (principal)
CPT/HCPCS: 72148

== ENCOUNTER 2025-05-02 09:21 | Emergency (ER) | payer OTHER, SELFPAY ==
[2025-05-02 09:22] VITALS: BP 154/91; PULSE 71; RESP 18; TEMP 37.4; O2SAT 94; BMI 29.7
--- NOTE | 2025-05-02 09:42 | RAD_ITS ---
PROCEDURE: RAD/Chest PA and Lateral
[2025-05-02 10:00] VITALS: BP 125/79; PULSE 64; RESP 17; TEMP 37; O2SAT 98
--- NOTE | 2025-05-02 10:02 | EX.ED.DYSGE1 ---
HPI History of Present Illness Chief Complaint: Cold Sx Narrative Narrative: Patient is a 54-year-old male with no known significant past medical history does not follow with a physician on a regular basis who presents to the emergency department chief complaint of cough, body aches and fever and not feeling well overall. He states that he has been feeling under the weather for the past few days. He states that his just got over similar symptoms. He states that he used to smoke but denies this recently denies any drug use denies any alcohol use states that he is coughing up significant sputum PFSH PFSH Medical History Impingement of left shoulder Left shoulder pain COVID Home Medications ?Medication ?Instructions ?Recorded ?Last Taken ?Type sulfamethoxazole 800 1 tab PO BID 7 days #14 tabs 08/17/23 Unknown Rx mg-trimethoprim 160 mg tablet (Bactrim DS) meloxicam 15 mg tablet mg PO DAILY 08/30/24 Unknown History metaxalone 800 mg tablet 800 mg PO TID 7 days #21 tabs 10/06/24 Unknown Rx prednisone 50 mg tablet 50 mg PO DAILY 5 days #5 tabs 05/02/25 Unknown Rx Allergy/AdvReac Type Severity Reaction Status Date / Time Penicillins (PCN) Allergy Hives Verified 05/02/25 09:22 Surgical History Hx of knee surgery History of surgery on wrist Hx of appendectomy Social History Smoking Status: Former smoker ROS ROS ED ROS Narrative Constitutional: Complains of fever and whole body aches as noted above denies headaches Eyes: Denies double vision Cardiovascular: Denies chest pain Respiratory: Complains of cough and sputum production as noted above Abdomen: Denies abdominal pain : Denies urinary symptoms Neurological: Denies numbness, weakness, tingling Musculoskeletal: Denies back pain Skin: Denies any rashes or lesions EXAM Physical Exam Narrative Exam Narrative: General: Patient was lying in bed rest comfortably did not appear to be in acute distress Head: Atraumatic, normocephalic Eyes: PERRL bilaterally, EOMI bilaterally, no conjunctival injection noted Neck: Soft, supple, trachea midline Cardiovascular: Regular rate and rhythm Respiratory: Clear to auscultation bilaterally Abdomen: Soft, nondistended, no tenderness to palpation Extremities: +5/5 strength noted in the bilateral upper and lower extremities Neurological: Patient following commands knew that he was at [facility] the year is 2024 Skin: Warm, dry, tact no rashes or lesions noted Const Vital Signs: 05/02/25 09:22 05/02/25 10:00 Temperature 99.3 F H 98.6 F Temperature Source Oral Oral Pulse Rate 71 64 Respiratory Rate 18 17 Blood Pressure 154/91 H 125/79 H Blood Pressure Mean 112 94 Pulse Ox 94 98 Oxygen Delivery Method Room Air Room Air MDM MDM MDM Narrative Medical decision making narrative: Patient is a 54-year-old male who presented to the emergency department the chief complaint of fever, cough. On the differential diagnose includes but not limited to upper respiratory infection second viral etiology, pneumonia. Once workup is obtained reviewed he will be reevaluated. Patient chest x-ray reviewed by myself by radiology showed no acute cardiopulmonary processes. I discussed the results with the patient he would like to go home. He was requesting a work note until Tuesday I told him that I cannot write him off this long of work however I will give him a work note for a few days. He will be given a prescription for prednisone as he does have a smoking history and likely has undiagnosed COPD and some form. He is advised to continue supportive care and return for worsening symptoms or concerns. He is agreeable this plan as well as family at bedside all question concerns answered is discharged home in stable condition Radiography Diagnostic Testing: Clinical Impression(s) from Imaging Studies Chest X-Ray 05/02/25 09:42 IMPRESSION: Lungs are hypoinflated, but are likely clear of acute disease. No pleural effusion or pneumothorax is noted. The cardiomediastinal silhouette is within the normal range. Minimal degenerative changes of the spine are seen. No evidence of acute cardiopulmonary disease. Reading Location: [place] [id number] Discharge Plan Triage Chief Complaint: Cold Sx ED Provider: All Olivo Dx/Rx/DC Orders Clinical Impression: Upper respiratory infection, viral, Chills, History of tobacco use Prescriptions: New prednisone 50 mg tablet 50 mg PO DAILY 5 Days Qty: 5 0RF No Action meloxicam 15 mg tablet PO DAILY metaxalone 800 mg tablet 800 mg PO TID 7 Days Qty: 21 0RF sulfamethoxazole-trimethoprim [Bactrim DS] 800-160 mg tablet 1 tab PO BID 7 Days Qty: 14 0RF Primary Care Provider: Miladys Sevilla Referrals: Miladys Sevilla MD [Primary Care Provider, Family Practice] Activity Restrictions/Additional Instructions: Follow-up with your doctor in the outpatient setting. Your chest x-ray did not show any evidence of pneumonia. Take prescription as prescribed. Return with worsening symptoms or any concerns. Keep a close eye in your blood pressure as it was slightly elevated here in the emergency department. Print Language: Palestinian Disposition Disposition: Home, Self Care
[2025-05-02 10:53] VITALS: BP 122/78; PULSE 62; RESP 18; TEMP 37; O2SAT 97
== END 2025-05-02 10:55 | disposition home or self-care (01) ==
PROVIDERS: Emergency Provider Emergency Medicine; PCP Family Medicine; Visit Provider Emergency Medicine
DX: J06.9 Acute upper respiratory infection, unspecified (principal); R68.83 Chills (without fever); Z87.891 Personal history of nicotine dependence; Z90.49 Acquired absence of other specified parts of digestive tract
CPT/HCPCS: 71046; 99282